=== PATIENT | female | born 1995 | race Caucasian/White ===

== ENCOUNTER 2022-08-09 16:16 | Outpatient (REF) | payer OTHER, SELFPAY ==
--- NOTE | 2022-08-09 15:10 | PAPFT_PTH ---
PATIENT: JEFF SPRAGUE LOC: [facility] U#:[id number] AGE/SX: 26/F ROOM: RE08/09/[address]: Yoli Epps NP : 1995 BED: DIS: 08/09/2022 SPEC #: [id number] RECD: 08/09/22 16:49 STATUS: NIXON ETIENNE #: [id number] MEE: 08/09/22 15:[address]: Yoli Epps NP DEPT: [facility] Cytology RECD BY: Ariana Bauer Tissues: 1 - CX/ENDOCX FOR PAP SMEARS Procedures: PAP THIN PREP/[facility] Screening Comments: [id number] (CHLAMYDIA/GC)
[2022-08-11 14:46] LABS: Chlamydia Result Negative (Negative); GC Result Negative (Negative)
== END 2022-08-09 16:17 | disposition home or self-care (01) ==
LOC: LBN 16:16
PROVIDERS: Visit Provider Nurse Practitioner Women's Health
DX: Z11.3 Encounter for screening for infections with a predominantly sexual mode of transmission (principal); Z12.4 Encounter for screening for malignant neoplasm of cervix
CPT/HCPCS: 87491; 87591; 88142